=== PATIENT | male | born 1955 | race Caucasian/White ===

== ENCOUNTER 2018-07-24 08:55 | Day surgery (SDC) | payer BC ==
[2018-07-17 16:33] VITALS: BMI 24.3
--- NOTE | 2018-07-24 07:52 | HP ---
HISTORY OF PRESENT ILLNESS: Mr. Pham is a 62-year-old male, known to use from previous evaluation of carpal tunnel syndrome 2 years ago with an EMG study that revealed bilateral carpal tunnel. He at that time had chosen to pursue conservative therapy, but importantly his pain and numbness have worsened, waking him at night and limiting his function during the day. His he wishes to move forward with surgery if possible. PAST MEDICAL HISTORY: Significant for diabetes, pancreatic cancer. CURRENT MEDICATIONS: Lantus, valsartan, fluoxetine, omeprazole, Zantac. ALLERGIES: NO KNOWN DRUG ALLERGIES. PAST SURGICAL HISTORY: Whipple procedure. PHYSICAL EXAMINATION: Alert and oriented x3. Numbness in the distribution of the median nerve of the bilateral hands, positive Tinel's in bilateral hands. ASSESSMENT: Bilateral carpal tunnel syndrome. PLAN: Dr. Armenta reviewed with the patient regarding right-sided carpal tunnel release. He explained to the patient, the risks, benefits, and alternatives to the procedure. The patient expressed understanding and elected to move forward with surgery as discussed. The patient is fully capable of making medical decisions for himself and we will move forward with surgery as planned. Job ID: [id number]
[2018-07-24] MEDS ORDERED: CEFAZOLIN 2 GM/50 ML BAG ONE (09:29)
[2018-07-24] MEDS ORDERED: Lidocaine 1% w/Epinephrine 1:100K 30 ML VIAL ONE (11:28)
[2018-07-24] MEDS ORDERED: Midazolam HCl 2 mg/2 ml Vial ONE ×2 (11:34→11:39)
[2018-07-24] MEDS ORDERED: Fentanyl 100 MCG/2 ML VIAL ONE (11:39)
[2018-07-24] MEDS ORDERED: HYDROcodone/Acetaminophen 5/325 mg Tablet ONE (12:58)
[2018-07-24] MEDS ORDERED: Lidocaine 1% PF 5 ML VIAL ONE (13:59)
[2018-07-24] MEDS ORDERED: PROPOFOL 200 MG/20 ML VIAL ONE (13:59)
[2018-07-24] MEDS ORDERED: Ondansetron PF 4 MG/2 ML Vial ONE (13:59)
--- NOTE | 2018-07-26 12:57 | OP ---
DATE OF PROCEDURE: 07/24/2018 CLIENT BUSINESS MANAGER: Rupert Craig PA-C INDICATION: Pain. DIAGNOSIS: Right carpal tunnel syndrome. PROCEDURES: Right carpal tunnel release. ANESTHESIA: Local and TIVA. DESCRIPTION OF PROCEDURE: The patient was brought into the operating room and placed on the table in a supine position. The arm was extended perpendicular to the body. It was prepped up to the level of the elbow. A linear incision was planned across the wrist in-line with the long axis of the fourth digit. This area was infiltrated with lidocaine. An incision was then created. The underlying carpal tunnel ligament was identified and incised. The incision was extended in both proximal and distal directions until there was decompression in the carpal tunnel ligament. The wound was irrigated. Hemostasis was maintained throughout. The wound was then closed in a single-layer technique. The procedure came to an end without complication. Job ID: [id number]
== END 2018-07-24 13:35 | disposition home or self-care (01) ==
LOC: SDC 08:55
PROVIDERS: ATTEND Neurological Surgery
PROC: 01N50ZZ Release Median Nerve, Open Approach (ICD-10-PCS; principal; 2018-07-24)
DX: G56.03 Carpal tunnel syndrome, bilateral upper limbs (principal); E11.9 Type 2 diabetes mellitus without complications; Z85.07 Personal history of malignant neoplasm of pancreas; Z79.4 Long term (current) use of insulin; Z79.899 Other long term (current) drug therapy
CPT/HCPCS: J2001; J2250; J2405; J2704; J3010

== ENCOUNTER 2018-08-17 12:23 | Day surgery (SDC) | payer BC ==
--- NOTE | 2018-08-16 14:47 | HP ---
HISTORY OF PRESENT ILLNESS: Mr. Pham is a pleasant 63-year-old man. He is known to us for very recent right carpal tunnel release, who has returned for his postoperative visit and would like to schedule the left side. He has pain and numbness in the same distribution as his right hand that would fit carpal tunnel syndrome and hopes to move forward with surgery. PAST MEDICAL HISTORY: Significant for diabetes, pancreatic cancer. CURRENT MEDICATIONS: Lantus, valsartan, fluoxetine, omeprazole, and Zantac. ALLERGIES: NO KNOWN DRUG ALLERGIES. PAST SURGICAL HISTORY: Whipple procedure and right carpal tunnel release. PHYSICAL EXAMINATION: The patient is alert and oriented x3. Numbness in the distribution of the median nerve of the left hand. Tinel's in the left median nerve distribution. ASSESSMENT: Left-sided carpal tunnel syndrome. PLAN: Dr. Patel met with the patient, reviewed his clinical course and advocated for left carpal tunnel release. He explained to the patient the risks, benefits, and alternatives to the procedure. The patient expressed understanding and elected to move forward with surgery as discussed. I do believe the patient is mentally competent and capable of making medical decisions for himself. We will move forward with surgery as planned. Job ID: [id number]
[2018-08-17] MEDS ORDERED: CEFAZOLIN 2 GM/50 ML BAG ONE (12:59)
[2018-08-17] MEDS ORDERED: Lidocaine 1% w/Epinephrine 1:100K 30 ML VIAL ONE (15:02)
[2018-08-17] MEDS ORDERED: Fentanyl 100 MCG/2 ML VIAL ONE (15:40)
[2018-08-17] MEDS ORDERED: Morphine 4 MG/ML VIAL ONE (16:49)
[2018-08-17] MEDS ORDERED: Morphine 2 MG/ML SYRINGE ONE (17:07)
[2018-08-17] MEDS ORDERED: Dexamethasone 20 MG/5 ML VIAL ONE (19:55)
[2018-08-17] MEDS ORDERED: Lidocaine 1% PF 5 ML VIAL ONE (19:55)
[2018-08-17] MEDS ORDERED: Ondansetron PF 4 MG/2 ML Vial ONE (19:55)
[2018-08-17] MEDS ORDERED: Ketorolac Tromethamine 30 MG/ML VIAL ONE (19:55)
[2018-08-17] MEDS ORDERED: PROPOFOL 200 MG/20 ML VIAL ONE (19:55)
--- NOTE | 2018-08-18 01:15 | OP ---
DATE OF PROCEDURE: 08/17/2018 SUPPLY PLANNER: Rupert Craig PA-C. INDICATION: Pain. DIAGNOSIS: Left carpal tunnel syndrome. PROCEDURE: Left carpal tunnel release. ANESTHESIA: General and local. TECHNIQUE: The patient was brought to the operating room and placed under general anesthesia. His arm was extended perpendicular to his body and prepped up to the level of the axilla. The wound incision was planned across the crease of the wrist in line with the long axis of the fourth digit. This area was infiltrated with lidocaine. Following an appropriate operative pause, the incision was created. A self-retaining retractor was placed. The carpal tunnel ligament was identified and incised. The incision was extended in proximal and distal directions until the elements of the carpal tunnel were decompressed. The wound was irrigated. Hemostasis was maintained throughout. The wound was then closed in a single-layer technique. The procedure came to an end without complication. Job ID: [id number]
== END 2018-08-17 17:40 | disposition home or self-care (01) ==
LOC: SDC 12:23
PROVIDERS: ATTEND Neurological Surgery
PROC: 01N50ZZ Release Median Nerve, Open Approach (ICD-10-PCS; principal; 2018-08-17)
DX: G56.02 Carpal tunnel syndrome, left upper limb (principal); E11.9 Type 2 diabetes mellitus without complications; Z85.07 Personal history of malignant neoplasm of pancreas; Z79.4 Long term (current) use of insulin; Z79.899 Other long term (current) drug therapy
CPT/HCPCS: 96374; J1100; J1885; J2001; J2270; J2405; J2704; J3010

== ENCOUNTER 2020-02-21 13:29 | Inpatient (IN) | payer BC ==
[~2020-02-21 13:29] MED LIST: Dexamethasone 20 MG/5 ML VIAL ONE; Glycopyrrolate 0.2 MG/ML 5 ML SYRINGE ONE; Iopamidol-370 76% 500 ML 1 ML ONE; Ketorolac Tromethamine 30 MG/ML VIAL ONE; Lidocaine 1% PF 5 ML VIAL ONE; Ondansetron PF 4 MG/2 ML Vial ONE; PHENYLEPHRINE-NS 100 MCG/ML 10 ML SYRINGE ONE; PROPOFOL 200 MG/20 ML VIAL ONE; Rocuronium Bromide 10 MG/ML (10ML VIAL) ONE; Succinylcholine Chloride 20 MG/ML 10 ml SYRINGE FS ONE; diphenhydrAMINE 50 MG/ML VIAL ONE
[2020-02-21 13:53] LABS: #Eosinphils 0.2 thou/uL (0.0-0.7); #Lymphocytes 1.5 thou/uL (1.20-3.40); #Monocytes 0.4 thou/uL (0.11-0.59); #Neutrophils 3.8 thou/uL (1.40-6.50); %Basophils 0.7 % (0.0-1.0); %Eosinophils 2.6 % (0.0-10.0); %Lymphocytes 25.5 % (21.0-51.0); %Monocytes 6.9 % (0.0-10.0); %Neutrophils 64.2 % (42.0-75.0); Hemoglobin 12.9 g/dL (14.0-18.0); Mean Corpuscular HGB CONC 34.8 g/dL (32.0-36.0); Mean Corpuscular Hemoglobin 34.2 pg (27.0-31.0); Mean Corpuscular Volume 98.3 fL (78.0-98.0); Mean Platelet Volume 7.6 fL (7.4-10.4); Platelet Count 133 thou/uL (130-400); RBC Distribution Width 10.7 % (11.5-14.5); Red Blood Cell (RBC) Count 3.78 mill/uL (4.70-6.10); White Blood Cell (WBC) Count 5.9 thou/uL (4.8-10.8)
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
[2020-02-21 14:26] LABS: ALT (SGPT) 60 U/L (8-55); AST (SGOT) 126 U/L (5-34); Alkaline Phosphatase 106 U/L (40-110); Anion Gap 13 mmol/L (10-20); BUN (Urea Nitrogen) 8 mg/dL (8.4-25.7); Bilirubin, Total 0.7 mg/dL (0.2-1.2); Calc. Creatinine Clearance 0 mL/min (70-130); Calcium 8.7 mg/dL (7.8-10.44); Carbon Dioxide 23 mmol/L (23-31); Chloride 108 mmol/L (98-107); Estimated GFR-MDRD 75; Globulin 2.4 g/dL (2.4-3.5); Glucose 96 mg/dL (80-115); Potassium 3.7 mmol/L (3.5-5.1); Protein, Total 6.4 g/dL (5.8-8.1); Sodium 140 mmol/L (136-145)
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
[2020-02-21] MEDS ORDERED: Ondansetron PF 4 MG/2 ML Vial ONE ×2 (15:42→18:30)
[2020-02-21] MEDS ORDERED: CEFAZOLIN 2 GM in Premix Bag 1 BAG IVPB SCH (15:45)
[2020-02-21] MEDS ORDERED: Fentanyl 100 MCG/2 ML VIAL ONE ×6 (16:12→22:31)
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
[2020-02-21] MEDS ORDERED: Morphine 4 MG/ML VIAL SLOW IVP PRN (16:55)
[2020-02-21] MEDS ORDERED: Promethazine HCl 25 MG/ML VIAL IM PRN ×2 (16:55→22:15)
[2020-02-21] MEDS ORDERED: Ondansetron PF 4 MG/2 ML Vial IVP PRN ×2 (16:55→22:15)
[2020-02-21] MEDS ORDERED: Dextrose 5% in Water 1,000 ML IV PRN (16:55)
[2020-02-21] MEDS ORDERED: Dextrose 50% Abboject 50 ML SYRINGE SLOW IVP PRN (16:55)
[2020-02-21] MEDS ORDERED: traMADol HCl 50 MG TAB PO PRN ×3 (17:00→17:12)
[2020-02-21] MEDS ORDERED: traMADol HCl 50 MG TAB PO SCH (17:00)
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
[2020-02-21] MEDS ORDERED: Ketorolac Tromethamine 30 MG/ML VIAL IVP SCH (18:00)
[2020-02-21] MEDS ORDERED: Midazolam HCl 2 mg/2 ml Vial ONE ×2 (18:30→19:09)
[2020-02-21] MEDS ORDERED: EPINEPHrine 1 MG/ML AMP ONE (18:34)
[2020-02-21] MEDS ORDERED: Meperidine HCl/PF 25 MG/ML VIAL ONE (20:44)
[2020-02-21] MEDS ORDERED: PACU-Morphine 4MG/ML VIAL SLOW IVP PRN (20:50)
[2020-02-21] MEDS ORDERED: Ondansetron HCl/PF 4 MG/2 ML Vial IVP PRN (20:50)
[2020-02-21] MEDS ORDERED: Promethazine HCl 25 MG/ML VIAL SLOW IVP PRN (20:50)
[2020-02-21] MEDS ORDERED: HYDROmorphone 2 MG/ML VIAL SLOW IVP PRN (20:50)
[2020-02-21] MEDS ORDERED: Meperidine HCl/PF 25 MG/ML VIAL SLOW IVP PRN (20:50)
[2020-02-21] MEDS ORDERED: Morphine Sulfate 2 MG/ML SYRINGE SLOW IVP PRN (20:50)
[2020-02-21] MEDS ORDERED: Ketorolac Tromethamine 30 MG/ML VIAL IVP PRN (22:15)
[2020-02-21] MEDS ORDERED: HYDROcodone/Acetaminophen 10/325 mg Tablet PO PRN ×2 (22:15)
[2020-02-21] MEDS ORDERED: Zolpidem Tartrate 5 MG TAB PO PRN (22:15)
[2020-02-21] MEDS ORDERED: Ropivacaine HCl/PF 250 ML in Premix Bag 1 BAG NERVE BLCK SCH (22:15)
[2020-02-21] MEDS ORDERED: Fentanyl 100 MCG/2 ML VIAL SLOW IVP PRN (22:16)
[2020-02-22] MEDS: Acetaminophen 325 MG TAB PO SCH ×3 (01:08→05:33)
[2020-02-22] MEDS: Sodium Chloride 0.9% 1,000 ML IV SCH ×2 (03:12→17:39)
[2020-02-22 05:11] VITALS: BMI 23.0
[2020-02-22] MEDS: Gabapentin 100 MG CAP PO SCH ×2 (05:27→09:32)
[2020-02-22] MEDS: CEFAZOLIN 2 GM in Premix Bag 1 BAG IVPB SCH ×2 (05:33→13:18)
[2020-02-22 05:42] LABS: Phosphorus 3.8 mg/dL (2.3-4.7)
[2020-02-22 05:44] LABS: ALT (SGPT) 50 U/L (8-55); AST (SGOT) 90 U/L (5-34); Albumin 3.5 g/dL (3.4-4.8); Alkaline Phosphatase 90 U/L (40-110); Anion Gap 12 mmol/L (10-20); BUN (Urea Nitrogen) 7 mg/dL (8.4-25.7); Bilirubin, Total 0.7 mg/dL (0.2-1.2); Calc. Creatinine Clearance 83 mL/min (70-130); Calcium 8.3 mg/dL (7.8-10.44); Carbon Dioxide 25 mmol/L (23-31); Chloride 105 mmol/L (98-107); Estimated GFR-MDRD 84; Globulin 2.1 g/dL (2.4-3.5); Glucose 203 mg/dL (80-115); Magnesium 1.4 mg/dL (1.6-2.6); Potassium 4.1 mmol/L (3.5-5.1); Protein, Total 5.6 g/dL (5.8-8.1); Sodium 138 mmol/L (136-145)
[2020-02-22 06:35] LABS: #Lymphocytes 0.4 thou/uL (1.20-3.40); #Monocytes 0.2 thou/uL (0.11-0.59); #Neutrophils 6.1 thou/uL (1.40-6.50); %Eosinophils 0.1 % (0.0-10.0); %Lymphocytes 6.1 % (21.0-51.0); %Monocytes 2.6 % (0.0-10.0); %Neutrophils 91.3 % (42.0-75.0); Hemoglobin 10.7 g/dL (14.0-18.0); Mean Corpuscular HGB CONC 34.4 g/dL (32.0-36.0); Mean Corpuscular Hemoglobin 33.8 pg (27.0-31.0); Mean Corpuscular Volume 98.2 fL (78.0-98.0); Mean Platelet Volume 8.1 fL (7.4-10.4); Platelet Count 113 thou/uL (130-400); Platelet Morphology Comment Appears Decreased; RBC Distribution Width 10.6 % (11.5-14.5); Red Blood Cell (RBC) Count 3.16 mill/uL (4.70-6.10); White Blood Cell (WBC) Count 6.7 thou/uL (4.8-10.8)
[2020-02-22] MEDS ORDERED: PHOS-NAK 1 PKT PACK PO SCH (08:00)
[2020-02-22] MEDS ORDERED: Magnesium 2 GM/50 ML 4 GM in Premix Bag 1 BAG IVPB SCH (08:00)
[2020-02-22] MEDS ORDERED: Acetaminophen 325 MG TAB PO SCH (08:04)
[2020-02-22] MEDS ORDERED: Magnesium Sulfate 4 GM in Sodium Chloride 0.9% 250 ML 250 ML IVPB SCH (08:15)
[2020-02-22] MEDS ORDERED: Non-Formulary Item 1 EACH (Omeprazole [Prilosec] 20 MG) PO SCH (09:00)
[2020-02-22] MEDS ORDERED: Pantoprazole 40 MG VIAL IVP SCH (09:00)
--- NOTE | 2020-02-22 09:11 | RAD ---
2 VIEWS RIGHT TIBIA AND FIBULA: Date: 02/21/2020 PROVIDED CLINICAL HISTORY: Postop. FINDINGS: Comparison examination from earlier same date. Interval lateral side plate and screw fixation of previously described lateral tibial plateau fractur e, with subsequent improved alignment. IMPRESSION: As above. POS: [facility]
[2020-02-22] MEDS: Enoxaparin Sodium 40 MG/0.4 ML SYRINGE SC SCH (09:32)
[2020-02-22] MEDS: traMADol HCl 50 MG TAB PO PRN ×2 (09:48→18:35)
[2020-02-22] MEDS ORDERED: Acetaminophen 500 MG TAB PO SCH (10:00)
[2020-02-22] MEDS ORDERED: Gabapentin 100 MG CAP PO SCH (10:45)
[2020-02-22] MEDS ORDERED: Gabapentin 300 MG CAP PO SCH (11:30)
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
[2020-02-22] MEDS: Acetaminophen 500 MG TAB PO SCH ×2 (13:22→18:34)
[2020-02-22] MEDS: Tamsulosin HCl 0.4 MG CAP PO SCH (13:25)
[2020-02-22] MEDS: Gabapentin 300 MG CAP PO SCH ×2 (14:42→21:18)
[2020-02-22] MEDS: Ibuprofen 600 MG TAB PO SCH ×2 (14:42→21:18)
[2020-02-22 15:56] LABS: Hemoglobin A1c 5.6 % (4.0-6.0)
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
[2020-02-22] MEDS: Losartan 25 MG TAB PO SCH (18:36)
[2020-02-22] MEDS ORDERED: Non-Formulary Item 1 EACH (Losartan Potassium [Cozaar] 100 MG) PO SCH (21:00)
[2020-02-22] MEDS: Atorvastatin Calcium 10 MG TAB PO SCH (21:18)
[2020-02-23] MEDS: Acetaminophen 500 MG TAB PO SCH ×5 (00:07→23:25)
[2020-02-23] MEDS: Cyclobenzaprine 10 MG TAB PO PRN (00:07)
[2020-02-23 05:50] LABS: Hemoglobin 10.4 g/dL (14.0-18.0); Mean Corpuscular HGB CONC 34.8 g/dL (32.0-36.0); Mean Corpuscular Hemoglobin 34.5 pg (27.0-31.0); Mean Corpuscular Volume 99.1 fL (78.0-98.0); Mean Platelet Volume 8.2 fL (7.4-10.4); Platelet Count 98 thou/uL (130-400); RBC Distribution Width 10.7 % (11.5-14.5); White Blood Cell (WBC) Count 6.2 thou/uL (4.8-10.8)
[2020-02-23 06:19] LABS: Anion Gap 9 mmol/L (10-20); BUN (Urea Nitrogen) 8 mg/dL (8.4-25.7); Calc. Creatinine Clearance 88 mL/min (70-130); Calcium 8.3 mg/dL (7.8-10.44); Carbon Dioxide 29 mmol/L (23-31); Chloride 104 mmol/L (98-107); Estimated GFR-MDRD 90; Glucose 152 mg/dL (80-115); Magnesium 2.1 mg/dL (1.6-2.6); Potassium 3.6 mmol/L (3.5-5.1); Sodium 138 mmol/L (136-145)
[2020-02-23] MEDS: Ibuprofen 600 MG TAB PO SCH ×3 (07:21→23:25)
[2020-02-23] MEDS: Tamsulosin HCl 0.4 MG CAP PO SCH (09:04)
[2020-02-23] MEDS: Gabapentin 300 MG CAP PO SCH ×3 (09:05→20:11)
[2020-02-23] MEDS: Enoxaparin Sodium 40 MG/0.4 ML SYRINGE SC SCH (09:05)
[2020-02-23] MEDS: traMADol HCl 50 MG TAB PO PRN ×3 (09:11→20:11)
[2020-02-23] MEDS ORDERED: Potassium Phosphate 15 MMOL in Sodium Chloride 0.9% 250 ML 250 ML IVPB SCH (10:00)
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
[2020-02-23] MEDS: Atorvastatin Calcium 10 MG TAB PO SCH (20:11)
[2020-02-23] MEDS: Losartan 25 MG TAB PO SCH (20:11)
[2020-02-24] MEDS: Ibuprofen 600 MG TAB PO SCH ×3 (05:54→21:38)
[2020-02-24] MEDS: Acetaminophen 500 MG TAB PO SCH ×4 (05:54→23:25)
[2020-02-24] MEDS: traMADol HCl 50 MG TAB PO PRN ×3 (05:54→18:06)
[2020-02-24 06:02] LABS: Anion Gap 8 mmol/L (10-20); BUN (Urea Nitrogen) 6 mg/dL (8.4-25.7); Calc. Creatinine Clearance 97 mL/min (70-130); Calcium 8.5 mg/dL (7.8-10.44); Carbon Dioxide 31 mmol/L (23-31); Chloride 102 mmol/L (98-107); Estimated GFR-MDRD Greater than 90; Glucose 122 mg/dL (80-115); Magnesium 1.9 mg/dL (1.6-2.6); Phosphorus 2.9 mg/dL (2.3-4.7); Potassium 3.6 mmol/L (3.5-5.1); Sodium 137 mmol/L (136-145)
[2020-02-24] MEDS: Gabapentin 300 MG CAP PO SCH ×3 (07:44→21:38)
[2020-02-24] MEDS: Enoxaparin Sodium 40 MG/0.4 ML SYRINGE SC SCH (07:44)
[2020-02-24] MEDS: Tamsulosin HCl 0.4 MG CAP PO SCH (07:44)
[2020-02-24] MEDS: Cyclobenzaprine 10 MG TAB PO PRN ×3 (07:47→23:25)
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
[2020-02-24] MEDS ORDERED: Amlodipine 5 MG TAB PO SCH (21:30)
[2020-02-24] MEDS: Losartan 25 MG TAB PO SCH (21:38)
[2020-02-24] MEDS: Atorvastatin Calcium 10 MG TAB PO SCH (21:38)
[2020-02-25] MEDS: traMADol HCl 50 MG TAB PO PRN (04:12)
[2020-02-25] MEDS: Ibuprofen 600 MG TAB PO SCH ×2 (05:01→13:13)
[2020-02-25] MEDS: Acetaminophen 500 MG TAB PO SCH ×3 (05:01→17:25)
[2020-02-25] MEDS: Pancrelipase DR 12000 1 CAP PO SCH ×3 (07:58→17:25)
[2020-02-25] MEDS: Enoxaparin Sodium 40 MG/0.4 ML SYRINGE SC SCH (07:58)
[2020-02-25] MEDS: Tamsulosin HCl 0.4 MG CAP PO SCH (07:59)
[2020-02-25] MEDS: Gabapentin 300 MG CAP PO SCH ×2 (07:59→13:14)
[2020-02-25] MEDS ORDERED: Amlodipine 5 MG TAB PO SCH (09:00)
[2020-02-25] MEDS ORDERED: DULoxetine 30 MG CAP PO SCH (09:00)
[2020-02-25 11:26] VITALS: TEMP 97.9
[2020-02-25 16:24] VITALS: BP 154/99
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
== END 2020-02-25 17:50 | disposition home or self-care (01) | DRG 493 ==
LOC: ERS 13:29 → SDC/OP 16:54 → SURG A 16:54
PROVIDERS: ADMIT Surgery; ATTEND Surgery
PROC: 0QSG04Z Reposition Right Tibia with Internal Fixation Device, Open Approach (ICD-10-PCS; principal; 2020-02-21)
DX: S82.141A Displaced bicondylar fracture of right tibia, initial encounter for closed fracture (principal); S12.400A Unspecified displaced fracture of fifth cervical vertebra, initial encounter for closed fracture; S06.0X0A Concussion without loss of consciousness, initial encounter; M54.5 Low back pain; G89.29 Other chronic pain; I10 Essential (primary) hypertension; E78.5 Hyperlipidemia, unspecified; K21.9 Gastro-esophageal reflux disease without esophagitis; F41.9 Anxiety disorder, unspecified; E11.40 Type 2 diabetes mellitus with diabetic neuropathy, unspecified; N40.0 Benign prostatic hyperplasia without lower urinary tract symptoms; E87.6 Hypokalemia; E83.39 Other disorders of phosphorus metabolism; V49.9XXA Car occupant (driver) (passenger) injured in unspecified traffic accident, initial encounter; Z79.899 Other long term (current) drug therapy; Z85.07 Personal history of malignant neoplasm of pancreas; Z90.49 Acquired absence of other specified parts of digestive tract; Z87.891 Personal history of nicotine dependence
CPT/HCPCS: 36415; 36416; 70450; 71045; 71260; 72125; 72170; 74177; 76000; 80048; 80053; 83036; 83735; 84100; 84484; 85025; 85027; 93005; 96374; C1713; G0390; J0171; J0690; J1100; J1200; J1650; J1885; J2001; J2175; J2250; J2405; J2704; J2795; J3010; J3475; J7050; Q9967

== ENCOUNTER 2020-02-28 14:24 | Inpatient (IN) | payer BC, OTHER ==
[2020-02-28 15:43] LABS: #Monocytes 0.7 thou/uL (0.11-0.59); #Neutrophils 4.1 thou/uL (1.40-6.50); %Basophils 0.1 % (0.0-1.0); %Eosinophils 0.8 % (0.0-10.0); %Lymphocytes 17.4 % (21.0-51.0); %Monocytes 12.3 % (0.0-10.0); %Neutrophils 69.4 % (42.0-75.0); Hemoglobin 11.4 g/dL (14.0-18.0); Mean Corpuscular HGB CONC 34.9 g/dL (32.0-36.0); Mean Corpuscular Hemoglobin 34.2 pg (27.0-31.0); Mean Corpuscular Volume 98.2 fL (78.0-98.0); Mean Platelet Volume 7.6 fL (7.4-10.4); Platelet Count 223 thou/uL (130-400); Red Blood Cell (RBC) Count 3.33 mill/uL (4.70-6.10); White Blood Cell (WBC) Count 5.9 thou/uL (4.8-10.8)
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
[2020-02-28 16:05] LABS: ALT (SGPT) 47 U/L (8-55); AST (SGOT) 67 U/L (5-34); Alkaline Phosphatase 99 U/L (40-110); Anion Gap 12 mmol/L (10-20); BUN (Urea Nitrogen) 12 mg/dL (8.4-25.7); Bilirubin, Total 1.2 mg/dL (0.2-1.2); Calc. Creatinine Clearance 0 mL/min (70-130); Calcium 9.5 mg/dL (7.8-10.44); Carbon Dioxide 26 mmol/L (23-31); Chloride 102 mmol/L (98-107); Estimated GFR-MDRD 83; Globulin 2.8 g/dL (2.4-3.5); Glucose 120 mg/dL (80-115); Potassium 3.2 mmol/L (3.5-5.1); Protein, Total 6.8 g/dL (5.8-8.1); Sodium 137 mmol/L (136-145)
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
[2020-02-28] MEDS ORDERED: Acetaminophen/Codeine 30-300mg Tablet PO PRN (17:13)
[2020-02-28] MEDS ORDERED: Acetaminophen 325 MG TAB PO PRN (17:13)
[2020-02-28] MEDS ORDERED: Bisacodyl 5 MG TAB PO PRN (17:13)
[2020-02-28] MEDS ORDERED: Ondansetron ODT 4 MG TAB PO PRN (17:13)
[2020-02-28 18:02] LABS: Anion Gap 12 mmol/L (10-20); BUN (Urea Nitrogen) 12 mg/dL (8.4-25.7); Calc. Creatinine Clearance 0 mL/min (70-130); Calcium 9.2 mg/dL (7.8-10.44); Carbon Dioxide 24 mmol/L (23-31); Chloride 103 mmol/L (98-107); Estimated GFR-MDRD Greater than 90; Glucose 108 mg/dL (80-115); Potassium 3.1 mmol/L (3.5-5.1); Sodium 136 mmol/L (136-145)
[2020-02-28 18:22] LABS: Bilirubin Negative (Negative); Blood, Urine Negative (Negative); Clarity Clear (Clear); Glucose, Urine (Dipstick) Normal (Negative); Ketone, Urine 40 mg/dL (Negative); Leukocyte Negative Leu/uL (Negative); Nitrite Negative (Negative); Protein, Urine (Dipstick) Negative (Neg-Trace); Specific Gravity, Urine 1.016 (1.002-1.036); Urobilinogen Normal mg/dL (Less than 2); pH, Urine 6.5 (5.0-9.0)
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
[2020-02-28] MEDS ORDERED: ALPRAZolam 0.5 MG TAB PO PRN (20:31)
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
[2020-02-28 21:13] VITALS: BMI 21.2
[2020-02-28] MEDS: Atorvastatin Calcium 10 MG TAB PO SCH (21:16)
[2020-02-28] MEDS: Amlodipine 5 MG TAB PO SCH (21:16)
[2020-02-28] MEDS: Losartan 25 MG TAB PO SCH (21:17)
[2020-02-28] MEDS: Gabapentin 300 MG CAP PO SCH (21:17)
[2020-02-28] MEDS: Acetaminophen/Codeine 30-300mg Tablet PO PRN (23:24)
[2020-02-29] MEDS: Sodium Chloride 0.9% 1,000 ML IV SCH ×3 (04:34→19:40)
[2020-02-29] MEDS: Acetaminophen/Codeine 30-300mg Tablet PO PRN (05:51)
[2020-02-29] MEDS ORDERED: traMADol HCl 50 MG TAB PO PRN ×4 (06:46→14:45)
[2020-02-29] MEDS ORDERED: Tamsulosin HCl 0.4 MG CAP PO SCH ×2 (09:00→16:00)
[2020-02-29] MEDS ORDERED: Thrombin 5000 UNITS/5 ML VIAL ONE (11:18)
[2020-02-29] MEDS ORDERED: Famotidine/PF 20 mg/2ml Vial ONE (11:25)
[2020-02-29] MEDS ORDERED: SUGAMMADEX SODIUM 200 MG/2 ML VIAL ONE (11:25)
[2020-02-29] MEDS ORDERED: Fentanyl 100 MCG/2 ML VIAL ONE (11:25)
[2020-02-29] MEDS ORDERED: Midazolam HCl 2 mg/2 ml Vial ONE (11:34)
[2020-02-29] MEDS ORDERED: Ondansetron PF 4 MG/2 ML Vial ONE (11:52)
[2020-02-29] MEDS ORDERED: PROPOFOL 200 MG/20 ML VIAL ONE (11:52)
[2020-02-29] MEDS ORDERED: Ketorolac Tromethamine 30 MG/ML VIAL ONE (11:52)
[2020-02-29] MEDS ORDERED: Metoclopramide HCl 10 MG/2 ML VIAL ONE (11:52)
[2020-02-29] MEDS ORDERED: Lidocaine 1% PF 5 ML VIAL ONE (11:52)
[2020-02-29] MEDS ORDERED: Rocuronium Bromide 10 MG/ML (10ML VIAL) ONE (11:52)
[2020-02-29] MEDS ORDERED: PHENYLEPHRINE-NS 100 MCG/ML 10 ML SYRINGE ONE (11:52)
[2020-02-29] MEDS ORDERED: Mag-Al 1200 mg/1200 mg/30 ML UDCUP PO PRN (14:35)
[2020-02-29] MEDS ORDERED: Morphine 4 MG/ML VIAL SLOW IVP PRN (14:35)
[2020-02-29] MEDS ORDERED: HYDROcodone/Acetaminophen 10/325 mg Tablet PO PRN ×2 (14:35)
[2020-02-29] MEDS ORDERED: diphenhydrAMINE 50 MG/ML VIAL IVP PRN (14:35)
[2020-02-29] MEDS ORDERED: Bisacodyl 10 MG SUPP PR PRN (14:35)
[2020-02-29] MEDS ORDERED: Acetaminophen 650 MG Suppository PR PRN (14:35)
[2020-02-29] MEDS ORDERED: Morphine 2 MG/ML VIAL SLOW IVP PRN (14:35)
[2020-02-29] MEDS ORDERED: Ondansetron PF 4 MG/2 ML Vial IVP PRN (14:38)
--- NOTE | 2020-02-29 15:06 | OP ---
DATE OF PROCEDURE: 02/29/2020 [employer] OPERATOR: Rupert Craig PA-C INDICATION: Prevent neurologic decline and spinal instability. DIAGNOSIS: Fracture dislocation, C5-C6. PROCEDURE PERFORMED: Open reduction of C5-C6 perched facet with anterior cervical diskectomy and fusion, C5-C6. ANESTHESIA: General. DESCRIPTION OF PROCEDURE: The patient was brought into the operating room and placed under general anesthesia. He was placed on table in a supine position while maintaining strict spine precautions. Under fluoroscopy, the level was localized and he underwent initially closed reduction with slight degree of hand traction until there was normal alignment of the spine with reduction of the perched facet. After prepping and draping, a transverse incision was created. The underlying platysma muscle was identified and incised. A blunt tissue plane anterior to the sternocleidomastoid muscle was used to gain access to the prevertebral space. Self-retaining retractors were then placed in the wound. The C5-C6 disk space was localized and an annulotomy was performed. Disk material was removed as were anterior and posterior osteophytes. After performing an arthrodesis and removing the cartilaginous endplates, a 6-mm lordotic PEEK cage packed with allograft and autograft material was placed within the interbody space. An anterior cervical plate was then fashioned to the front of spine and secured with a total of 4 fixed screws. Midline and lateral structures were inspected and found to be free from significant trauma. The wound was irrigated. Hemostasis was maintained throughout. The wound was then closed in anatomic layers, and a pressure dressing was applied. There were no known procedural complications. Job ID: [id number]
[2020-02-29] MEDS: Gabapentin 300 MG CAP PO SCH ×3 (15:39→20:40)
[2020-02-29] MEDS: DULoxetine 30 MG CAP PO SCH (15:49)
[2020-02-29] MEDS: CEFAZOLIN 2 GM in Premix Bag 1 BAG IVPB SCH (19:34)
[2020-02-29] MEDS: Amlodipine 5 MG TAB PO SCH (20:39)
[2020-02-29] MEDS: Losartan 25 MG TAB PO SCH (20:40)
[2020-02-29] MEDS: Atorvastatin Calcium 10 MG TAB PO SCH (20:40)
[2020-03-01] MEDS: HYDROcodone/Acetaminophen 5/325 mg Tablet PO PRN ×3 (01:54→18:03)
[2020-03-01] MEDS: Sodium Chloride 0.9% 1,000 ML IV SCH ×2 (01:56→19:03)
[2020-03-01] MEDS: CEFAZOLIN 2 GM in Premix Bag 1 BAG IVPB SCH (03:19)
[2020-03-01] MEDS: diphenhydrAMINE 25 MG CAP PO PRN ×2 (03:21→22:54)
[2020-03-01] MEDS: Tamsulosin HCl 0.4 MG CAP PO SCH (05:25)
[2020-03-01] MEDS: Gabapentin 300 MG CAP PO SCH ×3 (09:01→20:11)
[2020-03-01] MEDS: DULoxetine 30 MG CAP PO SCH (09:01)
[2020-03-01 12:37] LABS: SARS-CoV-2 MS2 Positive; SARS-CoV-2 N Gene Negative; SARS-CoV-2 S Gene Negative; SARS-CoV-2 orf1ab Negative
[2020-03-01] MEDS: Atorvastatin Calcium 10 MG TAB PO SCH (20:11)
[2020-03-01] MEDS: Amlodipine 5 MG TAB PO SCH (20:11)
[2020-03-01] MEDS: Losartan 25 MG TAB PO SCH (20:11)
[2020-03-02] MEDS: HYDROcodone/Acetaminophen 5/325 mg Tablet PO PRN ×3 (05:02→21:45)
[2020-03-02] MEDS: Tamsulosin HCl 0.4 MG CAP PO SCH (05:02)
[2020-03-02] MEDS: Sodium Chloride 0.9% 1,000 ML IV SCH ×2 (06:43→19:32)
[2020-03-02] MEDS: Cyclobenzaprine 10 MG TAB PO PRN ×2 (09:51→20:02)
[2020-03-02] MEDS: Gabapentin 300 MG CAP PO SCH ×3 (09:51→20:03)
[2020-03-02] MEDS: DULoxetine 30 MG CAP PO SCH (09:51)
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
[2020-03-02] MEDS: Losartan 25 MG TAB PO SCH (20:03)
[2020-03-02] MEDS: Atorvastatin Calcium 10 MG TAB PO SCH (20:03)
[2020-03-02] MEDS: Amlodipine 5 MG TAB PO SCH (20:03)
[2020-03-03] MEDS: Tamsulosin HCl 0.4 MG CAP PO SCH (05:22)
[2020-03-03] MEDS: HYDROcodone/Acetaminophen 5/325 mg Tablet PO PRN (05:23)
[2020-03-03] MEDS: Sodium Chloride 0.9% 1,000 ML IV SCH (09:15)
[2020-03-03] MEDS: DULoxetine 30 MG CAP PO SCH (09:27)
[2020-03-03] MEDS: Gabapentin 300 MG CAP PO SCH ×3 (09:27→20:11)
[2020-03-03] MEDS: Acetaminophen 325 MG TAB PO PRN (14:00)
[2020-03-03] MEDS: Cyclobenzaprine 10 MG TAB PO PRN (14:00)
[2020-03-03] MEDS: Atorvastatin Calcium 10 MG TAB PO SCH (20:11)
[2020-03-03] MEDS: Amlodipine 5 MG TAB PO SCH (20:11)
[2020-03-03] MEDS: Losartan 25 MG TAB PO SCH (20:12)
[2020-03-04] MEDS: Tamsulosin HCl 0.4 MG CAP PO SCH (05:14)
[2020-03-04] MEDS: Sodium Chloride 0.9% 1,000 ML IV SCH ×2 (06:24→11:34)
[2020-03-04] MEDS: Gabapentin 300 MG CAP PO SCH (09:02)
[2020-03-04] MEDS: DULoxetine 30 MG CAP PO SCH (09:02)
[2020-03-04] MEDS: Acetaminophen 325 MG TAB PO PRN ×2 (09:02→16:59)
[2020-03-04 10:55] VITALS: TEMP 98.3
[2020-03-04 15:56] VITALS: BP 127/87
[2020-03-04] MEDS: Cyclobenzaprine 10 MG TAB PO PRN (17:09)
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
--- NOTE | 2020-03-05 09:06 | PRG ---
DATE OF SERVICE: 03/04/2020 TIME OF ENCOUNTER: 07:45. SUBJECTIVE: Mr. Pham is now in the 4th day status post ACDF. I went to check on him and he was in the restroom. I will call back over to check in later. Our hope is that he will be able to be discharged to rehab later today. We will check back in after lunch. Job ID: [id number]
== END 2020-03-04 19:47 | disposition home health service (06) | DRG 473 ==
LOC: ERS 14:24 → SURG B 17:09
PROVIDERS: ADMIT Neurological Surgery; ATTEND Neurological Surgery
PROC: 0RG10A0 Fusion of Cervical Vertebral Joint with Interbody Fusion Device, Anterior Approach, Anterior Column, Open Approach (ICD-10-PCS; principal; 2020-02-29)
PROC: 0RB30ZZ Excision of Cervical Vertebral Disc, Open Approach (ICD-10-PCS; 2020-02-29)
DX: S12.490A Other displaced fracture of fifth cervical vertebra, initial encounter for closed fracture (principal); S12.590A Other displaced fracture of sixth cervical vertebra, initial encounter for closed fracture; M43.8X2 Other specified deforming dorsopathies, cervical region; M48.02 Spinal stenosis, cervical region; Z11.59 Encounter for screening for other viral diseases; E78.5 Hyperlipidemia, unspecified; I10 Essential (primary) hypertension; E11.40 Type 2 diabetes mellitus with diabetic neuropathy, unspecified; Z79.4 Long term (current) use of insulin; Z90.49 Acquired absence of other specified parts of digestive tract; Z79.899 Other long term (current) drug therapy; V89.2XXA Person injured in unspecified motor-vehicle accident, traffic, initial encounter; Z88.5 Allergy status to narcotic agent
CPT/HCPCS: 36415; 70450; 71045; 72125; 76000; 80053; 81003; 83735; 84443; 84484; 85025; 87635; 93005; 93970; 94760; C1713; C1776; J0690; J1885; J2250; J2405; J2704; J2765; J3010; Q0163; S0028; U0003

== ENCOUNTER 2020-03-13 13:08 | Outpatient (CLI) | payer BC ==
--- NOTE | 2020-03-13 13:38 | RAD ---
CERVICAL SPINE 4 VIEWS: Date: 03/13/2020 HISTORY: Cervical fracture. Comparison made to CT cervical spine dated 02/28/20 which demonstrate a facet fracture on the right a t C5-6. FINDINGS: Postoperative changes are now apparent. There has been anterior fusion. Anterior plate and screws tra nsfix C5-6 with interbody implant. Posterior elements appear normally aligned. There are degenerative changes at C3-4 and C4-5 with disc narrowing and hypertrophic spurring. Machine Clerical Verifier ior spondylosis at these levels. IMPRESSION: Postoperative and degenerative changes of the cervical spine noted. POS: AGW
== END 2020-03-13 13:09 | disposition home or self-care (01) ==
LOC: TBSIIMAG 13:08
PROVIDERS: ATTEND Neurological Surgery
DX: S12.9XXA Fracture of neck, unspecified, initial encounter (principal); M47.812 Spondylosis without myelopathy or radiculopathy, cervical region; Z98.1 Arthrodesis status
CPT/HCPCS: 72040

== ENCOUNTER 2022-09-15 15:02 | Outpatient (CLI) | payer BC ==
[2022-09-15 16:09] LABS: #Eosinphils 0.1 10x3/uL (0.0-0.5); #Monocytes 0.3 10x3/uL (0.0-1.1); #Neutrophils 4.1 10x3/uL (1.5-8.4); %Basophils 0.5 % (0.0-2.0); %Eosinophils 1.1 % (0.0-6.0); %Lymphocytes 17.1 % (18.0-47.0); %Monocytes 5.8 % (0.0-10.0); %Neutrophils 75.3 % (40.0-75.0); Hemoglobin 13.7 g/dL (13.5-17.5); Mean Corpuscular HGB CONC 35.1 g/dL (32.0-36.0); Mean Corpuscular Hemoglobin 33.8 pg (27.0-33.0); Mean Corpuscular Volume 96.3 fl (81.2-95.1); Mean Platelet Volume 10.5 fl (7.4-10.4); Platelet Count 128 10x3/uL (150-450); RBC Distribution Width 11.5 % (11.5-14.5); Red Blood Cell (RBC) Count 4.05 10x6/uL (4.32-5.72); White Blood Cell (WBC) Count 5.5 10x3/uL (3.5-10.5)
[2022-09-15 16:20] LABS: Anion Gap 14 mmol/L (10-20); BUN (Urea Nitrogen) 10 mg/dL (8.4-25.7); Calc. Creatinine Clearance 0 mL/min (70-130); Calcium 10.2 mg/dL (7.8-10.44); Carbon Dioxide 26 mmol/L (23-31); Chloride 104 mmol/L (98-107); Estimated GFR 72; Glucose 298 mg/dL (80-115); Sodium 139 mmol/L (136-145)
== END 2022-09-15 15:03 | disposition home or self-care (01) ==
LOC: LABBT 15:02
PROVIDERS: ATTEND Surgery
DX: Z01.818 Encounter for other preprocedural examination (principal); K40.90 Unilateral inguinal hernia, without obstruction or gangrene, not specified as recurrent
CPT/HCPCS: 80048; 85025; 93005; 93010

== ENCOUNTER 2022-09-21 05:50 | Day surgery (SDC) | payer BC ==
[2022-09-20 11:57] VITALS: BMI 22.1
[2022-09-21] MEDS ORDERED: fentaNYL PF 100 MCG/2 ML SYRINGE ONE (06:36)
[2022-09-21] MEDS ORDERED: Bupivacaine/Epinephrine 0.25% 30 ML VIAL ONE (06:38)
[2022-09-21] MEDS ORDERED: Midazolam HCl 2 mg/2 ml Vial ONE (07:13)
[2022-09-21] MEDS ORDERED: CEFAZOLIN 2 GM VIAL ONE (07:23)
[2022-09-21] MEDS ORDERED: Sodium Chloride 0.9% 100 ML ONE (07:23)
[2022-09-21] MEDS ORDERED: ePHEDrine 50 MG/ML VIAL ONE (07:47)
[2022-09-21] MEDS ORDERED: Rocuronium Bromide 10 MG/ML (10ML VIAL) ONE (07:47)
[2022-09-21] MEDS ORDERED: Glycopyrrolate 0.2 MG/ML 5 ML SYRINGE ONE (07:47)
[2022-09-21] MEDS ORDERED: PHENYLEPHRINE-NS 100 MCG/ML 10 ML SYRINGE ONE (07:47)
[2022-09-21] MEDS ORDERED: NEOSTIGMINE 3 MG/3 ML SYR 3 MG/3 ML SYRINGE ONE (07:47)
[2022-09-21] MEDS ORDERED: Ondansetron PF 4 MG/2 ML Vial ONE ×2 (07:47→10:51)
[2022-09-21] MEDS ORDERED: PROPOFOL 200 MG/20 ML VIAL ONE (07:47)
[2022-09-21] MEDS ORDERED: Lidocaine 1% PF 5 ML VIAL ONE (07:47)
[2022-09-21] MEDS ORDERED: Ketorolac Tromethamine 30 MG/ML VIAL ONE (07:47)
[2022-09-21] MEDS ORDERED: Fentanyl 100 MCG/2 ML VIAL ONE (09:32)
[2022-09-21] MEDS ORDERED: HYDROcodone/Acetaminophen 5/325 mg Tablet ONE (10:20)
[2022-09-21] MEDS ORDERED: Tamsulosin HCl 0.4 MG CAP ONE (12:36)
== END 2022-09-21 13:52 | disposition home or self-care (01) ==
LOC: SDC 05:50
PROVIDERS: ATTEND Surgery
PROC: 0YUA4JZ Supplement Bilateral Inguinal Region with Synthetic Substitute, Percutaneous Endoscopic Approach (ICD-10-PCS; principal; 2022-09-21)
PROC: 8E0W4CZ Robotic Assisted Procedure of Trunk Region, Percutaneous Endoscopic Approach (ICD-10-PCS; principal; 2022-09-21)
DX: K40.20 Bilateral inguinal hernia, without obstruction or gangrene, not specified as recurrent (principal); K21.9 Gastro-esophageal reflux disease without esophagitis; E10.9 Type 1 diabetes mellitus without complications; I10 Essential (primary) hypertension; Z85.07 Personal history of malignant neoplasm of pancreas; Z87.891 Personal history of nicotine dependence; Z79.899 Other long term (current) drug therapy; Z88.5 Allergy status to narcotic agent
CPT/HCPCS: 36416; C1781; J1885; J2250; J2405; J2704; J3010; J3490

== ENCOUNTER 2022-11-25 07:21 | Outpatient (CLI) | payer BC | END 2022-11-25 07:22 | disposition home or self-care (01) | LOC: BICCT 07:21 | PROVIDERS: ATTEND Family Medicine | DX: R63.4 Abnormal weight loss (principal); R68.81 Early satiety; I70.0 Atherosclerosis of aorta; Z85.07 Personal history of malignant neoplasm of pancreas; Z98.890 Other specified postprocedural states | CPT/HCPCS: 74177; 82565 ==

== ENCOUNTER 2025-05-06 11:48 | Outpatient (CLI) | payer BC ==
[2025-05-06 12:32] LABS: Estimated GFR - POC 82.0
[2025-05-06] MEDS ORDERED: Iopamidol 370 76% 100 ML VIAL ONE (13:08)
== END 2025-05-06 11:49 | disposition home or self-care (01) ==
LOC: CT 11:48
PROVIDERS: ATTEND Internal Medicine
DX: R05.1 Acute cough (principal); R06.02 Shortness of breath; C77.0 Secondary and unspecified malignant neoplasm of lymph nodes of head, face and neck; R97.8 Other abnormal tumor markers; R94.5 Abnormal results of liver function studies; C25.3 Malignant neoplasm of pancreatic duct; M79.89 Other specified soft tissue disorders; R59.0 Localized enlarged lymph nodes
CPT/HCPCS: 36415; 71260; 82565

== ENCOUNTER 2025-05-27 08:00 | Outpatient (CLI) | payer BC | END 2025-05-27 08:01 | disposition home or self-care (01) | LOC: PET 08:00 | PROVIDERS: ATTEND Internal Medicine | DX: C25.3 Malignant neoplasm of pancreatic duct (principal); C77.0 Secondary and unspecified malignant neoplasm of lymph nodes of head, face and neck; R97.8 Other abnormal tumor markers; R94.5 Abnormal results of liver function studies | CPT/HCPCS: 78815; A9552 ==

== ENCOUNTER 2025-06-07 08:45 | Outpatient (CLI) | payer BC ==
[2025-06-07 10:16] LABS: SARS-CoV-2 E Target Negative; SARS-CoV-2 N2 Target Negative; SARS-CoV-2 NAA Rapid Test Not Detected (NotDetected); SARS-CoV-2 RdRP gene Negative
== END 2025-06-07 08:46 | disposition home or self-care (01) ==
LOC: LABBT 08:45
PROVIDERS: ATTEND Student in an Organized Health Care Education/Training Program
DX: Z01.818 Encounter for other preprocedural examination (principal); R59.0 Localized enlarged lymph nodes
CPT/HCPCS: 93005; 93010; U0002

== ENCOUNTER 2025-06-10 06:59 | Day surgery (SDC) | payer BC ==
[2025-06-07 09:16] VITALS: BMI 22.1
[2025-06-07 09:42] LABS: #Basophils 0.04 10x3/uL (0.0-0.2); #Eosinophils 0.34 10x3/uL (0.0-0.7); #Monocytes 0.79 10x3/uL (0.11-0.59); #Neutrophils 3.95 10x3/uL (1.40-6.50); %Basophils 0.6 % (0.0-1.0); %Eosinophils 4.8 % (0.0-10.0); %Lymphocytes 27.2 % (21.0-51.0); %Monocytes 11.2 % (0.0-10.0); %Neutrophils 55.9 % (42.0-75.0); Hematocrit 38.5 % (42.0-52.0); Hemoglobin 13.1 g/dL (14.0-18.0); Mean Corpuscular Hemoglobin 33.0 pg (27.0-31.0); Mean Corpuscular Volume 97.0 fL (78.0-98.0); Platelet Count 174 10x3/uL (130-400); Red Blood Cell (RBC) Count 3.97 mill/uL (4.70-6.10); White Blood Cell (WBC) Count 7.06 10x3/uL (4.8-10.8)
[2025-06-07 09:56] LABS: INR-International Normal Ratio 1.1; PTT 29.1 sec (22.9-36.1); Prothrombin Time 14.8 sec (12.0-14.7)
[2025-06-07 10:01] LABS: ALT (SGPT) 30 U/L (Less than 45); AST (SGOT) 37 U/L (11-34); Albumin 3.8 g/dL (3.1-4.5); Alkaline Phosphatase 126 U/L (40-110); Anion Gap 16 mmol/L (10-20); BUN (Urea Nitrogen) 9 mg/dL (8.4-25.7); Bilirubin, Total 0.6 mg/dL (0.3-1.2); Calc. Creatinine Clearance 0 mL/min (70-130); Calcium 9.8 mg/dL (7.8-10.44); Carbon Dioxide 26 mmol/L (23-31); Chloride 100 mmol/L (98-107); Globulin 3.3 g/dL (2.4-3.5); Glucose 215 mg/dL (80-115); Potassium 4.4 mmol/L (3.5-5.1); Sodium 138 mmol/L (136-145)
[2025-06-10] MEDS ORDERED: fentaNYL PF 100 MCG/2 ML SYRINGE ONE ×3 (07:58→10:37)
[2025-06-10] MEDS ORDERED: PROPOFOL 20 ML ONE (07:58)
[2025-06-10] MEDS ORDERED: SUGAMMADEX SODIUM 200 MG/2 ML VIAL ONE (07:58)
[2025-06-10] MEDS ORDERED: Rocuronium Bromide 10 MG/ML (10ML VIAL) ONE (07:58)
[2025-06-10] MEDS ORDERED: PHENYLEPHRINE-NS 100 MCG/ML 10 ML SYRINGE ONE (07:59)
[2025-06-10] MEDS ORDERED: Ondansetron PF 4 MG/2 ML Vial ONE (07:59)
[2025-06-10] MEDS ORDERED: Lidocaine 2% PF 100 mg/5 ml Syringe ONE (07:59)
[2025-06-10] MEDS ORDERED: CEFAZOLIN 2 GM VIAL ONE (09:02)
[2025-06-10] MEDS ORDERED: Ondansetron PF 4 MG/2 ML Vial IVP PRN (11:34)
[2025-06-10] MEDS ORDERED: Acetaminophen 325 MG TAB PO PRN (11:34)
== END 2025-06-10 13:57 | disposition home or self-care (01) ==
LOC: SDC 06:59
PROVIDERS: ATTEND Student in an Organized Health Care Education/Training Program
PROC: 0WBC4ZX Excision of Mediastinum, Percutaneous Endoscopic Approach, Diagnostic (ICD-10-PCS; principal; 2025-06-10)
DX: C77.1 Secondary and unspecified malignant neoplasm of intrathoracic lymph nodes (principal); I10 Essential (primary) hypertension; E11.9 Type 2 diabetes mellitus without complications; E78.00 Pure hypercholesterolemia, unspecified; F32.A Depression, unspecified; J01.90 Acute sinusitis, unspecified; Z85.07 Personal history of malignant neoplasm of pancreas; Z87.891 Personal history of nicotine dependence; Z90.89 Acquired absence of other organs; Z90.49 Acquired absence of other specified parts of digestive tract; Z98.890 Other specified postprocedural states; Z79.4 Long term (current) use of insulin; Z79.899 Other long term (current) drug therapy
CPT/HCPCS: 36416; 71045; 80053; 85025; 85610; 85730; 86850; 86900; 86901; 88305; J0169; J0665; J1100; J2003; J2250; J2405; J2704

== ENCOUNTER 2025-06-30 16:44 | Observation (INO) | payer BC ==
[~2025-06-30 16:44] MED LIST changes: -Dexamethasone 20 MG/5 ML VIAL ONE; -Glycopyrrolate 0.2 MG/ML 5 ML SYRINGE ONE; -Iopamidol-370 76% 500 ML 1 ML ONE; +Iopamidol-370 76% 500 ML MDV (1 ML CHARGE) ONE; -Ketorolac Tromethamine 30 MG/ML VIAL ONE; -Lidocaine 1% PF 5 ML VIAL ONE; -Ondansetron PF 4 MG/2 ML Vial ONE; -PHENYLEPHRINE-NS 100 MCG/ML 10 ML SYRINGE ONE; -PROPOFOL 200 MG/20 ML VIAL ONE; -Rocuronium Bromide 10 MG/ML (10ML VIAL) ONE; -Succinylcholine Chloride 20 MG/ML 10 ml SYRINGE FS ONE; -diphenhydrAMINE 50 MG/ML VIAL ONE
[2025-06-30] MEDS ORDERED: Ondansetron PF 4 MG/2 ML Vial ONE (17:14)
[2025-06-30] MEDS ORDERED: Ketorolac Tromethamine 30 MG (1 mL) VIAL ONE (17:14)
[2025-06-30 17:32] LABS: #Basophils Less than 0.03 10x3/uL (0.0-0.2); #Eosinophils Less than 0.03 10x3/uL (0.0-0.7); #Monocytes 0.08 10x3/uL (0.11-0.59); #Neutrophils 5.08 10x3/uL (1.40-6.50); %Basophils 0.0 % (0.0-1.0); %Eosinophils 0.2 % (0.0-10.0); %Lymphocytes 3.9 % (21.0-51.0); %Monocytes 1.5 % (0.0-10.0); %Neutrophils 93.7 % (42.0-75.0); Hematocrit 35.9 % (42.0-52.0); Hemoglobin 13.2 g/dL (14.0-18.0); Mean Corpuscular Hemoglobin 32.8 pg (27.0-31.0); Mean Corpuscular Volume 89.1 fL (78.0-98.0); Platelet Count 126 10x3/uL (130-400); Red Blood Cell (RBC) Count 4.03 mill/uL (4.70-6.10); White Blood Cell (WBC) Count 5.42 10x3/uL (4.8-10.8)
[2025-06-30 17:58] LABS: ALT (SGPT) 97 U/L (Less than 45); AST (SGOT) 53 U/L (11-34); Albumin 3.9 g/dL (3.1-4.5); Alkaline Phosphatase 149 U/L (40-110); Anion Gap 25 mmol/L (10-20); BUN (Urea Nitrogen) 24 mg/dL (8.4-25.7); Bilirubin, Total 1.8 mg/dL (0.3-1.2); Calc. Creatinine Clearance 0 mL/min (70-130); Calcium 9.6 mg/dL (7.8-10.44); Carbon Dioxide 19 mmol/L (23-31); Chloride 85 mmol/L (98-107); Globulin 3.1 g/dL (2.4-3.5); Glucose 528 mg/dL (80-115); Lipase Less than 4 U/L (8-78); Potassium 4.7 mmol/L (3.5-5.1); Sodium 124 mmol/L (136-145)
[2025-06-30 18:31] LABS: Actual Bicarbonate (HCO3v) 18.1 mEq/L (22-28); Analyzer IN Cardio ER; Base Excess -4.5 mEq/L (-2.0 to +3.0); Calcium, Ionized (venous) 1.06 mmol/L (1.16-1.32); Chloride (VBG) 91 mmol/L (98-106); Hematocrit-VBG 36 % (42.0-52.0); Hemoglobin (Hb) 12.4 g/dL (12.6-17.4); Potassium (VBG) 4.29 mmol/L (3.70-5.30); Sodium 124 mmol/L (133-146)
[2025-06-30 18:32] LABS: Bacteria/HPF None Seen HPF (None Seen); CAUTI Indications for Culture Pelvic or flank pain; Glucose, Urine (Dipstick) Greater than 1000 mg/dL (Negative); Leukocyte Negative Leu/uL (Negative); Protein, Urine (Dipstick) Negative (Neg-Trace); RBC/HPF None Seen HPF (0-3); Specific Gravity, Urine 1.024 (1.002-1.036); WBC/HPF 0-3 HPF (0-3)
[2025-06-30 18:34] LABS: Urine Culture Reflex No No
[2025-06-30 21:28] LABS: Anion Gap 17 mmol/L (10-20); BUN (Urea Nitrogen) 23 mg/dL (8.4-25.7); Calc. Creatinine Clearance 0 mL/min (70-130); Calcium 8.8 mg/dL (7.8-10.44); Carbon Dioxide 22 mmol/L (23-31); Chloride 91 mmol/L (98-107); Glucose 431 mg/dL (80-115); Potassium 4.3 mmol/L (3.5-5.1); Sodium 126 mmol/L (136-145)
[2025-06-30] MEDS ORDERED: Ondansetron PF 4 MG/2 ML Vial IVP PRN (21:36)
[2025-06-30] MEDS ORDERED: Acetaminophen 325 MG TAB PO PRN (21:36)
[2025-06-30] MEDS ORDERED: Dextrose 50% Abboject 50 ML SYRINGE SLOW IVP PRN (21:39)
[2025-06-30] MEDS ORDERED: Glucagon 1 MG/ML KIT IM PRN (21:39)
[2025-06-30] MEDS ORDERED: HYDROcodone/Acetaminophen 5/325 mg Tablet PO PRN (23:17)
[2025-06-30 23:21] VITALS: BMI 21.6
[2025-06-30] MEDS ORDERED: Acetaminophen 500 MG TAB PO PRN (23:23)
[2025-06-30] MEDS: Insulin Glargine 30 UNITS/0.3 ML VIAL SC SCH (23:33)
[2025-06-30] MEDS: Senokot S 8.6-50 MG TAB PO SCH (23:33)
[2025-07-01 05:54] LABS: #Basophils Less than 0.03 10x3/uL (0.0-0.2); #Eosinophils 0.20 10x3/uL (0.0-0.7); #Monocytes 0.17 10x3/uL (0.11-0.59); #Neutrophils 3.65 10x3/uL (1.40-6.50); %Basophils 0.0 % (0.0-1.0); %Eosinophils 4.1 % (0.0-10.0); %Lymphocytes 16.3 % (21.0-51.0); %Monocytes 3.5 % (0.0-10.0); %Neutrophils 75.5 % (42.0-75.0); Hematocrit 34.3 % (42.0-52.0); Hemoglobin 12.0 g/dL (14.0-18.0); Mean Corpuscular Hemoglobin 32.6 pg (27.0-31.0); Mean Corpuscular Volume 93.2 fL (78.0-98.0); Platelet Count 120 10x3/uL (130-400); Red Blood Cell (RBC) Count 3.68 mill/uL (4.70-6.10); White Blood Cell (WBC) Count 4.84 10x3/uL (4.8-10.8)
[2025-07-01 06:04] LABS: ALT (SGPT) 80 U/L (Less than 45); AST (SGOT) 54 U/L (11-34); Albumin 3.3 g/dL (3.1-4.5); Alkaline Phosphatase 128 U/L (40-110); Anion Gap 16 mmol/L (10-20); BUN (Urea Nitrogen) 24 mg/dL (8.4-25.7); Bilirubin, Total 0.9 mg/dL (0.3-1.2); Calc. Creatinine Clearance 57 mL/min (70-130); Calcium 8.6 mg/dL (7.8-10.44); Carbon Dioxide 22 mmol/L (23-31); Chloride 95 mmol/L (98-107); Globulin 2.7 g/dL (2.4-3.5); Glucose 312 mg/dL (80-115); Potassium 3.8 mmol/L (3.5-5.1); Sodium 129 mmol/L (136-145)
[2025-07-01] MEDS ORDERED: hydrALAZINE 20 MG/ML VIAL SLOW IVP PRN (07:51)
[2025-07-01] MEDS: Enoxaparin 40 MG (0.4 mL) SYRINGE SC SCH (08:30)
[2025-07-01] MEDS: Senokot S 8.6-50 MG TAB PO SCH (08:30)
[2025-07-01] MEDS: Pantoprazole 40 MG DR.TAB PO SCH (08:31)
[2025-07-01] MEDS ORDERED: ALPRAZolam 0.5 MG TAB PO PRN (09:17)
[2025-07-01] MEDS ORDERED: Famotidine 20 MG TAB PO PRN (09:17)
[2025-07-01] MEDS: Non-Formulary Item 1 EACH (Omeprazole [Omeprazole] 20 MG Tablet.Dr) PO SCH (10:23)
[2025-07-01 11:42] VITALS: BP 147/66; TEMP 97.5
[2025-07-01] MEDS ORDERED: LIPASE PO SCH (12:00)
[2025-07-01] MEDS ORDERED: PROTEASE PO SCH (12:00)
[2025-07-01] MEDS ORDERED: HYDROcodone/Acetaminophen 5/325 mg Tablet PO PRN (12:00)
[2025-07-01] MEDS ORDERED: AMYLASE PO SCH (12:00)
[2025-07-01 15:10] VITALS: BMI 21.6
[2025-07-01] MEDS ORDERED: Losartan 25 MG TAB PO SCH (21:00)
[2025-07-01] MEDS ORDERED: Insulin Glargine 30 UNITS/0.3 ML VIAL SC SCH (21:00)
== END 2025-07-01 16:05 | disposition home or self-care (01) ==
LOC: ERS 16:44 → T4-B 21:36
PROVIDERS: ADMIT Internal Medicine; ATTEND Internal Medicine
DX: N13.30 Unspecified hydronephrosis (principal); E11.65 Type 2 diabetes mellitus with hyperglycemia; I10 Essential (primary) hypertension; K76.0 Fatty (change of) liver, not elsewhere classified; G12.9 Spinal muscular atrophy, unspecified; Z79.899 Other long term (current) drug therapy; Z79.4 Long term (current) use of insulin; Z90.49 Acquired absence of other specified parts of digestive tract; Z87.891 Personal history of nicotine dependence
CPT/HCPCS: 36415; 36416; 51798; 74177; 80053; 81001; 82010; 82805; 83036; 83605; 83690; 84484; 85025; 93005; 96361; 96372; 96374; 96375; 96376; G0378; J1650; J1815; J1885; J2270; J2405; Q9967